=== PATIENT | female | born 1975 | race Two or more races ===

== ENCOUNTER 2024-06-11 01:56 | Emergency (ER) | payer SELFPAY ==
[~2024-06-11] VITALS: Ht 175.3 cm; Wt 129.1 kg
[2024-06-11 01:58] VITALS: BP 144/114; PULSE 60; RESP 16; TEMP 97.5; O2SAT 100
== END 2024-06-11 02:40 | disposition left against medical advice (07) ==
LOC: EMS 01:58
DX: J40 Bronchitis, not specified as acute or chronic (principal); Z53.21 Procedure and treatment not carried out due to patient leaving prior to being seen by health care provider